=== PATIENT | male | born 1965 | race Two or more races ===

== ENCOUNTER 2019-06-24 13:32 | Emergency (ER) | payer OTHER ==
[~2019-06-24] VITALS: Ht 172.7 cm; Wt 95.7 kg
--- NOTE | 2019-06-24 13:35 | NUR ---
BIBRA 41 FROM HOME C/O UNWITNESS SEIZURE EPISODE, BG 127, TO ER BED 9, HOOKED TO MONITOR, CHANGED TO HOSP GOWN, WARM BLANKET PROVIDED. PATIENT AOX3 , BREATHING EVEN AND UNLABORED. AWAITING MD RAMÍREZ. SEIZURE PRECAUTIONS APPLIED
[2019-06-24 14:10] LABS: BASOPHILS # (AUTO) 0.1 /CMM (0.0-0.2); BASOPHILS % (AUTO) 0.8 % (0.0-2.0); EOSINOPHILS % (AUTO) 4.8 % (0.0-6.0); HEMATOCRIT 47 % (39-51); HEMOGLOBIN 15.9 g/dL (13.5-17.5); LYMPHOCYTES # (AUTO) 2.1 /CMM (0.8-4.8); LYMPHOCYTES % (AUTO) 30.2 % (20.0-44.0); MEAN CORPUSCULAR HGB CONC 34 g/dl (31.0-36.0); MEAN CORPUSCULAR VOLUME 92 fL (80-96); MONOCYTES # (AUTO) 0.6 /CMM (0.1-1.30); MONOCYTES % (AUTO) 8.3 % (2.0-12.0); NEUTROPHILS # (AUTO) 3.9 /CMM (1.8-8.9); NEUTROPHILS % (AUTO) 55.9 % (43.0-81.0); PLATELET COUNT (AUTO) 240 /CMM (150-450); RED BLOOD CELL COUNT(AUTO) 5.06 MIL/uL (4.5-6.0); WHITE BLOOD COUNT (AUTO) 6.9 K/uL (4.3-11.0)
--- NOTE | 2019-06-24 14:16 | NUR ---
DR TRUJILLO AT BEDSIDE
[2019-06-24 14:23] LABS: ALANINE AMINOTRANSFERASE 54 U/L (12-78); ALBUMIN 3.8 g/dL (3.4-5.0); ALCOHOL, BLOOD < 3 mg/dL (0-0); ALKALINE PHOSPHATASE 72 U/L (46-116); ASPARTATE AMINOTRANSFERASE 47 U/L (15-37); BILIRUBIN,TOTAL 0.4 mg/dL (0.2-1.0); CALCIUM, SERUM 9.1 mg/dL (8.5-10.1); CARBON DIOXIDE 21 mmol/L (21-32); CHLORIDE 103 mmol/L (98-107); CREATININE 1.2 mg/dL (0.6-1.3); GLUCOSE 128 mg/dL (74-106); SODIUM SERUM 137 mmol/L (136-145); TOTAL PROTEIN, SERUM 7.7 g/dL (6.4-8.2); UREA NITROGEN, BLOOD 21 mg/dL (7-18)
[2019-06-24 14:37] LABS: PHENYTOIN (DILANTIN) 8.4 ug/ml (10.0-20.0); VALPROIC ACID 7 ug/mL (50-100)
[2019-06-24 14:44] LABS: PHENOBARBITAL 1 ug/ml (15-39)
[2019-06-24] MEDS ORDERED: LEVETIRACETAM (500MG) 1,000 MG in IV NS 0.9% 100 ML IV ONE (15:00)
[2019-06-24] MEDS ORDERED: PHENYTOIN EXTENDED RELEASE 100 MG CAPSULE PO ONE ×2 (15:30→15:32)
--- NOTE | 2019-06-24 15:38 | NUR ---
CALLED RAFFAELE FOR READ.
--- NOTE | 2019-06-24 17:02 | NUR ---
IV removed. Catheter intact and site benign. Pressure and 4x4 applied to site. No bleeding noted.Patient discharged to home in stable condition. Written and verbal after care instructions given. Patient verbalizes understanding of instruction.
[2019-06-24 17:03] VITALS: BP 118/71
== END 2019-06-24 17:03 | disposition home or self-care (01) ==
LOC: ER 13:34
DX: S00.512A Abrasion of oral cavity, initial encounter (principal); G40.909 Epilepsy, unspecified, not intractable, without status epilepticus; R89.2 Abnormal level of other drugs, medicaments and biological substances in specimens from other organs, systems and tissues; F20.9 Schizophrenia, unspecified; R00.0 Tachycardia, unspecified; X58.XXXA Exposure to other specified factors, initial encounter; Y93.89 Activity, other specified; Y92.89 Other specified places as the place of occurrence of the external cause; Y99.8 Other external cause status
CPT/HCPCS: 36415; 70450; 72125; 80048; 80076; 80164; 80184; 80185; 80307; 85025; 93005 ×2; 96365; 99284; J1953; J7030; G0480

== ENCOUNTER 2019-06-29 07:30 | Emergency (ER) | payer OTHER ==
[~2019-06-29] VITALS: Ht 172.7 cm; Wt 95.0 kg
--- NOTE | 2019-06-29 07:35 | NUR ---
BIBRA 41 FROM HOME C/O WITNESSED SEIZURE, ABOUT 20 MINS AGO. BG 140. TO ER BED 9, HOOKED TO MONITOR, SEIZURE PRECAUTION APPLIED. NOTED W ORAL TRAUMA. CHANGED TO HOSP GOWN, WARM BLANKET PROVIDED. DR MAC AT BEDSIDE FOR EVAL.
[2019-06-29] MEDS ORDERED: LORAZEPAM INJ 2 MG/ML VIAL ONE (07:53)
[2019-06-29] MEDS ORDERED: phenytoin SODIUM IV 1,000 MG in IV NS 0.9% 100 ML IV ONE (08:00)
[2019-06-29] MEDS ORDERED: LORAZEPAM INJ 2 MG/ML VIAL IVP ONE (08:00)
[2019-06-29] MEDS ORDERED: IV NS 0.9% 1,000 ML BAG IV ONE (08:00)
[2019-06-29 08:04] LABS: BASOPHILS # (AUTO) 0.2 /CMM (0.0-0.2); BASOPHILS % (AUTO) 1.7 % (0.0-2.0); HEMATOCRIT 48 % (39-51); HEMOGLOBIN 16.2 g/dL (13.5-17.5); LYMPHOCYTES # (AUTO) 1.5 /CMM (0.8-4.8); LYMPHOCYTES % (AUTO) 10.7 % (20.0-44.0); MEAN CORPUSCULAR HGB CONC 34 g/dl (31.0-36.0); MEAN CORPUSCULAR VOLUME 92 fL (80-96); MONOCYTES # (AUTO) 0.4 /CMM (0.1-1.30); MONOCYTES % (AUTO) 3.2 % (2.0-12.0); NEUTROPHILS # (AUTO) 11.3 /CMM (1.8-8.9); NEUTROPHILS % (AUTO) 82.4 % (43.0-81.0); PLATELET COUNT (AUTO) 262 /CMM (150-450); RED BLOOD CELL COUNT(AUTO) 5.22 MIL/uL (4.5-6.0); WHITE BLOOD COUNT (AUTO) 13.7 K/uL (4.3-11.0)
[2019-06-29 08:18] LABS: ALBUMIN 3.9 g/dL (3.4-5.0); BILIRUBIN,DIRECT 0.1 mg/dL (0.0-0.2); BILIRUBIN,TOTAL 0.3 mg/dL (0.2-1.0); CREATININE 1.3 mg/dL (0.6-1.3); POTASSIUM 4.1 mmol/L (3.5-5.1); TOTAL PROTEIN, SERUM 7.9 g/dL (6.4-8.2)
--- NOTE | 2019-06-29 09:29 | NUR ---
CALLED WHIT (MOTHER) TO TREASURY CONSULTANT PT. GRANDDAUGHTER RAVI WILL TREASURY CONSULTANT PT IN HALF HOUR.
--- NOTE | 2019-06-29 10:25 | NUR ---
IV removed. Catheter intact and site benign. Pressure and 4x4 applied to site. No bleeding noted. Patient picked up by gerard Saunders in stable condition. Written and verbal after care instructions given. Patient and gerard verbalizes understanding of instruction. Assisted outside ED via wheelchair.
[2019-06-29 10:27] VITALS: BP 124/71
== END 2019-06-29 10:27 | disposition home or self-care (01) ==
LOC: ER 07:31
DX: R56.9 Unspecified convulsions (principal); F20.9 Schizophrenia, unspecified
CPT/HCPCS: 36415; 70450; 80048; 80076; 80185; 85025; 93005 ×2; 96365; 96375; 99284; J1165; J2060; J7030 ×2

== ENCOUNTER 2020-04-26 13:07 | Emergency (ER) | payer OTHER ==
[~2020-04-26] VITALS: Ht 172.7 cm; Wt 97.5 kg
[2020-04-26] MEDS ORDERED: LEVETIRACETAM (250 MG) 250 MG TABLET PO ONE ×2 (13:30)
[2020-04-26 13:57] VITALS: BP 122/82
--- NOTE | 2020-04-26 13:58 | NUR ---
Patient discharged to home in stable condition. Written and verbal after care instructions given. Patient verbalizes understanding of instruction.
== END 2020-04-26 13:58 | disposition home or self-care (01) ==
LOC: ER 13:08
DX: G40.909 Epilepsy, unspecified, not intractable, without status epilepticus (principal); F20.9 Schizophrenia, unspecified

== ENCOUNTER 2020-05-14 20:39 | Emergency (ER) | payer OTHER ==
[~2020-05-14] VITALS: Ht 172.7 cm; Wt 97.5 kg
[2020-05-14 21:00] LABS: BASOPHILS % (AUTO) 1.1 % (0.0-2.0); EOSINOPHILS % (AUTO) 0.1 % (0.0-6.0); HEMATOCRIT 46 % (39-51); HEMOGLOBIN 15.5 g/dL (13.5-17.5); LYMPHOCYTES # (AUTO) 1.5 /CMM (0.8-4.8); LYMPHOCYTES % (AUTO) 41.6 % (20.0-44.0); MEAN CORPUSCULAR HGB CONC 34 g/dl (31.0-36.0); MEAN CORPUSCULAR VOLUME 92 fL (80-96); MONOCYTES # (AUTO) 0.5 /CMM (0.1-1.30); MONOCYTES % (AUTO) 13.1 % (2.0-12.0); NEUTROPHILS # (AUTO) 1.6 /CMM (1.8-8.9); NEUTROPHILS % (AUTO) 44.1 % (43.0-81.0); PLATELET COUNT (AUTO) 184 /CMM (150-450); RED BLOOD CELL COUNT(AUTO) 4.99 MIL/uL (4.5-6.0); WHITE BLOOD COUNT (AUTO) 3.7 K/uL (4.3-11.0)
[2020-05-14] MEDS ORDERED: LEVETIRACETAM (500MG) 500 MG in IV NS 0.9% 100 ML IV ONE (21:00)
--- NOTE | 2020-05-14 21:06 | NUR ---
lyric whittaker juana, sera nolan
[2020-05-14 21:12] LABS: CALCIUM, SERUM 8.2 mg/dL (8.5-10.1); CARBON DIOXIDE 21 mmol/L (21-32); CHLORIDE 102 mmol/L (98-107); CREATININE 0.9 mg/dL (0.6-1.3); GLUCOSE 84 mg/dL (74-106); POTASSIUM 3.5 mmol/L (3.5-5.1); SODIUM SERUM 138 mmol/L (136-145); UREA NITROGEN, BLOOD 13 mg/dL (7-18)
--- NOTE | 2020-05-14 21:12 | NUR ---
PATIENT TAKEN TO CT
[2020-05-14 21:18] LABS: ALANINE AMINOTRANSFERASE 56 U/L (12-78); ALBUMIN 3.3 g/dL (3.4-5.0); ALCOHOL, BLOOD < 3 mg/dL (0-0); ALKALINE PHOSPHATASE 79 U/L (46-116); ASPARTATE AMINOTRANSFERASE 58 U/L (15-37); BILIRUBIN,DIRECT 0.1 mg/dL (0.0-0.2); BILIRUBIN,TOTAL 0.3 mg/dL (0.2-1.0); TOTAL PROTEIN, SERUM 7.6 g/dL (6.4-8.2)
[2020-05-14] MEDS ORDERED: LIDOCAINE 2% JEL UROJET 10 ML MM ONE (21:27)
--- NOTE | 2020-05-14 21:39 | NUR ---
URINE COLLECTED AND SENT TO THE LAB.
--- NOTE | 2020-05-14 22:06 | NUR ---
CALLED RAVI, PATIENT WILL BE PICKED UP BY PATIENT'S MOTHER. UNKNOWN ETA
[2020-05-14 22:13] LABS: BILIRUBIN,URINE Negative (NEGATIVE); BLOOD, URINE Trace-intact Ery/uL (NEGATIVE); COLOR,URINE YELLOW (YELLOW); LEUKOCYTE ESTERASE ,URINE Negative (NEGATIVE); NITRITE, URINE Negative (NEGATIVE); PROTEIN,URINE 30 mg/dl (NEGATIVE); UGLUCOSE Negative (NEGATIVE)
[2020-05-14 22:26] LABS: BACTERIA,URINE Rare /HPF (None Seen)
[2020-05-14 22:27] LABS: SQUAMOUS EPITHELIAL CELL,UR 0-2 /HPF (None Seen); WBC,URINE 0-2 /HPF (0-3)
--- NOTE | 2020-05-15 00:27 | NUR ---
PATIENT IS AWAKE. ALERT AND ORIENTED 4x
--- NOTE | 2020-05-15 00:28 | NUR ---
MOTHER WILL BE HERE IN 15 MINUTES OR LESS.
--- NOTE | 2020-05-15 00:45 | NUR ---
IV removed. Catheter intact and site benign. Pressure and 4x4 applied to site. No bleeding noted.
--- NOTE | 2020-05-15 00:45 | NUR ---
Patient discharged to home in stable condition. Written and verbal after care instructions given. Patient verbalizes understanding of instruction.
--- NOTE | 2020-05-15 00:45 | NUR ---
Patient is picked up by the mother.
--- NOTE | 2020-05-15 00:46 | NUR ---
Patient is ambulatory with a steady gait.
[2020-05-15 00:47] VITALS: BP 124/73
== END 2020-05-15 00:47 | disposition home or self-care (01) ==
LOC: ER 20:42
DX: G40.909 Epilepsy, unspecified, not intractable, without status epilepticus (principal); F20.9 Schizophrenia, unspecified; R94.31 Abnormal electrocardiogram [ECG] [EKG]
CPT/HCPCS: 36415; 70450; 80048; 80076; 80185; 80307; 80320; 81001; 85025; 93005; 96365; 99285; J1953; J3490; J7030; G0480

== ENCOUNTER 2020-08-03 18:53 | Emergency (ER) | payer OTHER ==
[~2020-08-03] VITALS: Ht 172.7 cm; Wt 95.3 kg
[2020-08-03] MEDS ORDERED: LEVETIRACETAM (500MG) 1,000 MG in IV NS 0.9% 100 ML IV ONE (19:00)
[2020-08-03] MEDS ORDERED: LEVETIRACETAM (500MG) 500 MG/5 ML VIAL IV ONE ×2 (19:09→19:10)
--- NOTE | 2020-08-03 19:16 | NUR ---
[id number], from home, had seizure episode 20 mins [employer] and 1 this morning no oral trauma, BS 107. On room air, breathing evenly and unlabored. Connected to the monitor and pulse ox, kept comfortable, will continue to monitor accordingly.
[2020-08-03 19:33] LABS: BASOPHILS % (AUTO) 0.4 % (0.0-2.0); EOSINOPHILS % (AUTO) 0.9 % (0.0-6.0); HEMATOCRIT 47 % (39-51); HEMOGLOBIN 16.1 g/dL (13.5-17.5); LYMPHOCYTES # (AUTO) 2.7 /CMM (0.8-4.8); LYMPHOCYTES % (AUTO) 28.1 % (20.0-44.0); MEAN CORPUSCULAR HGB CONC 34 g/dl (31.0-36.0); MEAN CORPUSCULAR VOLUME 93 fL (80-96); MONOCYTES # (AUTO) 0.7 /CMM (0.1-1.30); NEUTROPHILS # (AUTO) 6.1 /CMM (1.8-8.9); NEUTROPHILS % (AUTO) 63.6 % (43.0-81.0); PLATELET COUNT (AUTO) 263 /CMM (150-450); RED BLOOD CELL COUNT(AUTO) 5.04 MIL/uL (4.5-6.0); WHITE BLOOD COUNT (AUTO) 9.6 K/uL (4.3-11.0)
[2020-08-03 19:42] LABS: CALCIUM, SERUM 9.1 mg/dL (8.5-10.1); CARBON DIOXIDE 23 mmol/L (21-32); CHLORIDE 102 mmol/L (98-107); CREATININE 1.1 mg/dL (0.6-1.3); GLUCOSE 87 mg/dL (74-106); POTASSIUM 4.1 mmol/L (3.5-5.1); SODIUM SERUM 140 mmol/L (136-145); UREA NITROGEN, BLOOD 18 mg/dL (7-18)
--- NOTE | 2020-08-03 19:54 | NUR ---
urine collected and sent to the lab.
[2020-08-03 19:56] LABS: ALANINE AMINOTRANSFERASE 46 U/L (12-78); ALBUMIN 3.8 g/dL (3.4-5.0); ALKALINE PHOSPHATASE 128 U/L (46-116); ASPARTATE AMINOTRANSFERASE 26 U/L (15-37); BILIRUBIN,DIRECT 0.1 mg/dL (0.0-0.2); BILIRUBIN,TOTAL 0.2 mg/dL (0.2-1.0); TOTAL PROTEIN, SERUM 7.9 g/dL (6.4-8.2)
[2020-08-03 19:58] LABS: ALCOHOL, BLOOD < 3 mg/dL (0-0)
[2020-08-03 20:24] LABS: PHENYTOIN (DILANTIN) 6.8 ug/ml (10.0-20.0)
--- NOTE | 2020-08-03 20:52 | NUR ---
RAVI BRIDGES [phone]
[2020-08-03] MEDS ORDERED: PHENYTOIN EXTENDED RELEASE 100 MG CAPSULE PO ONE ×2 (21:00)
--- NOTE | 2020-08-03 21:12 | NUR ---
CALLED RAVI TO PICK PATIENT UP, OKAY'D BY PATIENT.
--- NOTE | 2020-08-03 21:33 | NUR ---
PATIENT PICKED UP BY RAVI
[2020-08-03 21:42] VITALS: BP 112/69
== END 2020-08-03 21:43 | disposition home or self-care (01) ==
LOC: ER 18:56
DX: R56.9 Unspecified convulsions (principal); F20.9 Schizophrenia, unspecified
CPT/HCPCS: 36415; 80048; 80076; 80185; 80307; 80320; 85025; 96365; 99284; J1953 ×3; J7030 ×2; G0480